=== PATIENT | male | born 1945 | race Caucasian/White ===

== ENCOUNTER 2022-01-09 15:01 | Emergency (ER) | payer OTHER ==
--- NOTE | 2022-01-09 16:39 | XRay Report ---
ABDOMEN 1 VIEW(S) INDICATION / CLINICAL INFORMATION: constipation. COMPARISON: None available. FINDINGS: TUBES / LINES: None. BOWEL GAS PATTERN: No significant abnormality. FREE AIR / EXTRALUMINAL GAS: None seen. ADDITIONAL FINDINGS: No significant additional findings. IMPRESSION: 1. No radiographic evidence of acute abdomen. No significant constipation is appreciated. Signer Name: Gus Delgadillo MD Signed: 01/09/2022 4:34 PM Workstation Name: [id number]
[2022-01-09 17:51] LABS: Bacteria,Urine 1+ /HPF (Negative); Bilirubin,Urine NEG (Negative); Blood,Urine MOD (Negative); Color,Urine Yellow (Yellow); Mucus,Urine FEW /HPF; Protein,Urine <15 mg/dL mg/dL (Negative); Urobilinogen,Urine < 2.0 mg/dL (<2.0)
--- NOTE | 2022-01-09 18:34 | Emergency Department Report ---
ED Male HPI - General Chief complaint: Urogenital-Male Stated complaint: CAN'T URINE Time Seen by Provider: 01/09/22 17:10 Source: patient Mode of arrival: Wheelchair Limitations: No Limitations - History of Present Illness Initial comments: 76 yo male presents to the ed for evaluation of abdominal pain and inability to urinate. He states that he saw his urologist less than a week ago, had a cystogram and was diagnosed with BPH. He states that he has not been able to urinate today and thinks that it is because he is constipated. Per his family, the patient has been having problems with constipation for the past year. He denies fever, n/v. MD Complaint: other (abdominal pain and urinary retention) -: Gradual, days(s) (1) Location: abdomen Radiation: none Severity: severe Severity scale (0 -10): 10 Quality: aching Consistency: constant Improves with: none Worsens with: none urinary retention. denies: discharge, swelling, mass, rash, blood in urine, dysuria, fever, nausea/vomiting, incontinence - Related Data Allergies Allergy/AdvReac Type Severity Reaction Status Date / Time No Known Allergies Allergy Unverified 01/09/22 15:51 ED Review of Systems ROS: Stated complaint: CAN'T URINE Other details as noted in HPI Comment: All other systems reviewed and negative Constitutional: denies: chills, diaphoresis, fever, malaise, weakness Eyes: denies: eye pain, eye discharge ENT: denies: ear pain Respiratory: denies: cough, orthopnea, shortness of breath, SOB with exertion, SOB at rest Cardiovascular: denies: chest pain, palpitations, dyspnea on exertion, edema, syncope Endocrine: no symptoms reported Gastrointestinal: abdominal pain. denies: nausea, vomiting, diarrhea, hematemesis, melena, hematochezia Genitourinary: denies: urgency, dysuria, frequency, hematuria, discharge, testicular pain Skin: rash. denies: lesions, change in color, change in hair/nails Neurological: denies: headache, weakness, numbness, paresthesias Psychiatric: denies: anxiety Hematological/Lymphatic: denies: easy bleeding, easy bruising ED Physical Exam - General Limitations: No Limitations General appearance: alert, in no apparent distress - Head Head exam: Present: atraumatic, normocephalic - Eye Eye exam: Present: normal appearance. Absent: conjunctival injection - Neck Neck exam: Present: normal inspection, full ROM. Absent: tenderness - Respiratory Respiratory exam: Present: normal lung sounds bilaterally. Absent: respiratory distress, wheezes, rales, rhonchi, stridor, chest wall tenderness, accessory muscle use - Cardiovascular Cardiovascular Exam: Present: regular rate, normal heart sounds - GI/Abdominal GI/Abdominal exam: Present: distended, tenderness, normal bowel sounds. Absent: soft, guarding, rebound, rigid - Extremities Exam Extremities exam: Present: normal inspection, full ROM - Back Exam Back exam: Present: normal inspection, full ROM. Absent: tenderness, CVA tenderness (R), CVA tenderness (L), paraspinal tenderness, vertebral tenderness - Neurological Exam Neurological exam: Present: alert, oriented X3 - Psychiatric Psychiatric exam: Present: normal affect, normal mood - Skin Skin exam: Present: warm, dry, intact, normal color ED Course Vital Signs 01/09/22 01/09/22 16:03 18:42 Temperature 98.5 F 98.4 F Pulse Rate 88 90 Respiratory 18 18 Rate Blood Pressure 135/77 120/84 [Right] O2 Sat by Pulse 97 98 Oximetry ED Medical Decision Making - Radiology Data Radiology results: report reviewed KUB without any acute abnormalities. - Medical Decision Making 76 yo male presents to the ed for evaluation of abdominal pain and inability to urinate. He states that he saw his urologist less than a week ago, had a cystogram and was diagnosed with BPH. He states that he has not been able to urinate today and thinks that it is because he is constipated. Per his family, the patient has been having problems with constipation for the past year. He denies fever, n/v. KUB within normal limits. Noted to have distended bladder on assessment. 16 Fr indwelling sprague catheter placed per me, and patient noted to have a total of 11ooml of clear, yellow urine out. UA was negative for UTI. Sprague was left in place and patient was advised to follow up with urology in the next 3-4 days for reassessment and further management of urinary retention. Patient and were instructed on how to manage and care for sprague at home. They verbalized understanding of and agreement with plan of care. Critical care attestation.: If time is entered above; I have spent that time in minutes in the direct care of this critically ill patient, excluding procedure time. ED Disposition Clinical Impression: Urinary retention Disposition: 01 HOME / SELF CARE / HOMELESS Is pt being admited?: No Does the pt Need Aspirin: No Condition: Stable Instructions: Indwelling Urinary Catheter Insertion, Care After, Acute Urinary Retention, Male, [id number] Additional Instructions: Keep catheter in place. Follow-up with urology in the next 2 to 3 days. Return to the ER for worsening symptoms. Referrals: RIC NARANJO MD [Primary Care Provider] - 3-5 Days MARIAN CARDOSO MD [Staff Physician] - 3-5 Days Time of Disposition: 18:33
[2022-01-09 18:54] VITALS: BP 120/84
== END 2022-01-09 18:45 | disposition home or self-care (01) ==
LOC: ED 15:01
DX: R33.9 Retention of urine, unspecified (principal)
CPT/HCPCS: 51702; 74018; 81001; 99283